=== PATIENT | female | born 1940 | race Caucasian/White ===

== ENCOUNTER → 2017-07-21 | Outpatient (CLI) | payer BC, MEDICARE | LOC: SHCH 13:03 | PROVIDERS: ATTEND Internal Medicine Cardiovascular Disease | DX: K21.9 Gastro-esophageal reflux disease without esophagitis (principal) | CPT/HCPCS: 93970 ==

== ENCOUNTER 2019-06-17 23:02 | Emergency (ER) | payer MEDICARE, BC ==
[2019-06-17] MEDS ORDERED: ONDANSETRON HCL 4 MG/2 ML VIAL ONE (23:58)
[2019-06-17] MEDS ORDERED: MORPHINE SULFATE 4 MG/1ML SYG ONE (23:59)
[2019-06-18] MEDS ORDERED: LIDOCAINE 5% TOPICAL PATCH TP ONE (01:48)
[2019-06-18] MEDS ORDERED: KETOROLAC TROMETHAMINE 15MG/ML ONE (01:48)
== END 2019-06-18 02:29 | disposition home or self-care (01) ==
LOC: EDH 23:02
DX: S50.01XA Contusion of right elbow, initial encounter (principal); S46.009A Unspecified injury of muscle(s) and tendon(s) of the rotator cuff of unspecified shoulder, initial encounter; S09.90XA Unspecified injury of head, initial encounter; I10 Essential (primary) hypertension; E11.9 Type 2 diabetes mellitus without complications; Z79.899 Other long term (current) drug therapy; W10.8XXA Fall (on) (from) other stairs and steps, initial encounter; Y93.89 Activity, other specified; Y92.098 Other place in other non-institutional residence as the place of occurrence of the external cause; Y99.8 Other external cause status
CPT/HCPCS: 70450; 73030; 73060; 73080; 73090; 96374; 96375; 99284; J1885; J2270; J2405